=== PATIENT | male | born 1945 | race Caucasian/White ===

== ENCOUNTER 2018-03-24 10:09 | Inpatient (IN) ==
[2018-03-24] MEDS ORDERED: Bisacodyl 10 MG Supp RECTAL PRN (14:11)
[2018-03-24] MEDS: Azithromycin 250 MG Tablet PO SCH (17:30)
[2018-03-24] MEDS: Enoxaparin Inj 40 MG/0.4 ML Syringe SQ SCH (17:32)
--- NOTE | 2018-03-24 17:44 | P.HP ---
History of Present Illness Chief Complaint: Fever, nausea and vomiting History of Present Illness: 73-year-old male of prostate cancer, history of tobacco use who presented to the hospital for evaluation of fever and nausea and vomiting. Patient states that he has been having medical symptoms for over a month. Approximate 1 month ago he was admitted in [facility] in [place] for approximately 7 days for infection. He was discharged home after 3 days he did not feel any better so he went back to the emergency department and he was given antibiotic and took it until completion. Then 2 weeks ago he started noticing that he is experiencing intermittent fevers that run from high 98-102 intermittently. One week ago he did go to [facility] and was treated for urinary tract infection with oral Keflex. He has been taking medication up until now. Patient had a family member come in from [place] to visit and he states that he had a fever this morning with an episode of gastric reflux and vomiting because of those reasons she brought him to the hospital for evaluation since he has been to [facility] multiple times without any improvement. They decided come to [place] for different evaluation. Patient did have workup done emergency department and found to have a mildly elevated lactic acid level. Chest x-ray with possible early airspace disease, CT scan does show chronic interstitial changes in the lung bases bilaterally. - Diagnosis (1) HAP (hospital-acquired pneumonia) Inpatient Certification: I certify that the inpatient services were ordered in accordance with Medicare regulations governing the order. This includes certification that hospital inpatient services are reasonable and necessary and in the case of services not specified as inpatient-only under 42 CFR 419.22(n), that they are appropriately provided as inpatient services in accordance to with the 2-midnight benchmark under 43 CFR 412.3(e) Estimated Total Length of Stay (Days): 3 Plans for Post Hospital Care: Home Review of Systems All other systems reviewed negative except as stated in HPI Constitutional: Reports fever(s) Respiratory: Reports cough Gastrointestinal: Reports abdominal pain, Reports nausea, Reports vomiting PMFSH - History History Provided By: Patient, Family Member - Medical History Medical History: Medical History (Last Reviewed 03/24/18 @ 17:38 by XAVIRE Queen) Anxiety BPH (benign prostatic hyperplasia) COPD (chronic obstructive pulmonary disease) High cholesterol History of chemotherapy Hx of radiation therapy Hypertension Prostate CA - Surgical History Surgical History: Surgical History (Last Reviewed 03/24/18 @ 17:38 by XAVIER Queen) Hx of appendectomy Hx of cholecystectomy Hx of hemorrhoidectomy Hx of neck surgery - Family History Family History: Family History (Last Updated 03/24/18 @ 17:38 by XAVIER Queen) Mother Family history of colon cancer Father Family history of stroke - Tobacco History Smoking Status: Former smoker Number of Pack Years (if former smoker): 50 - Alcohol History How Often Do You Have a Drink Containing Alcohol: Monthly or less - Substance Use History Substance History: No History of Abuse Medications and Allergies Active Medications: Active Medications Al Hydroxide/Mg Hydroxide (Milk Of Magnesia Liq) 30 ml PO Q12H PRN PRN Reason: Mild Constipation Azithromycin (Zithromax) 500 mg PO DAILY SHOBHA Bisacodyl (Dulcolax Supp) 10 mg RECTAL DAILY PRN PRN Reason: SEVERE CONSITIPATION Enoxaparin Sodium (Lovenox Inj) 40 mg SQ Q24H SHOBHA Piperacillin/Tazobactam/Dextrose (Zosyn 3.375 Gm Premix) 50 mls @ 100 mls/hr IV.SIG Q6H SHOBHA Lactulose (Lactulose Liq) 30 ml PO DAILY PRN PRN Reason: SEVERE CONSITIPATION Ondansetron HCl (Zofran Inj) 4 mg IV.PUSH Q6H PRN PRN Reason: NAUSEA OR VOMITING Senna/Docusate Sodium (Tiffany-Colace) 1 tab PO BID SHOBHA Sennosides (Senokot) 17.2 mg PO Q12H PRN PRN Reason: Moderate Constipation Sodium Chloride (Ns Flush) 2 ml IV.FLUSH PRN PRN PRN Reason: FLUSH AFTER USING IV ACCESS Allergies Allergy/AdvReac Type Severity Reaction Status Date / Time No Known Allergies Allergy Verified 03/24/18 10:39 Home Medications Medication Instructions Recorded Confirmed Type acetaminophen 1,000 mg PO Q6H PRN 03/24/18 03/24/18 History albuterol sulfate [ProAir HFA] 2 puff INHALATION Q4-6H PRN 03/24/18 03/24/18 History atorvastatin 10 mg PO DAILY 03/24/18 03/24/18 History budesonide-formoterol [Symbicort] 2 puff INHALATION BID 03/24/18 03/24/18 History cephalexin [Keflex] 500 mg PO BID 03/24/18 03/24/18 History cyanocobalamin (vitamin B-12) 1,000 mcg PO DAILY 03/24/18 03/24/18 History [Vitamin B-12] fluoxetine 10 mg PO DAILY 03/24/18 03/24/18 History gabapentin 400 mg PO BID 03/24/18 03/24/18 History lisinopril 20 mg PO DAILY 03/24/18 03/24/18 History magnesium oxide 400 mg PO DAILY 03/24/18 03/24/18 History omeprazole 40 mg PO DAILY 03/24/18 03/24/18 History ondansetron [Zofran ODT] 4 mg PO Q6-8H PRN 03/24/18 03/24/18 History sertraline 25 mg PO DAILY 03/24/18 03/24/18 History tamsulosin 0.4 mg PO BID 03/24/18 03/24/18 History tramadol 50 mg PO BID 03/24/18 03/24/18 History Exam Narrative: GENERAL: Well-developed, well-nourished, in no acute distress. alert and orientated HEENT: Head is normocephalic without any lesions or masses noted. Facial features are symmetric. Eyes: Pupils equal round reactive to light. Extraocular muscles are intact. Conjunctivae were clear. Oropharyngeal: Pharynx without any erythema edema. Tongue is midline without deviation. Buccal mucosa is moist without any masses or lesions NECK: Supple without any masses. Trachea midline no deviation. No JVD, no bruits are appreciated CARDIAC: Regular rhythm, regular rate. S1/S2 are heard. No murmurs gallops or rubs. LUNGS: Clear to auscultation bilaterally. No wheeze, rhonchi or rales. No use of accessory muscles on inspiration or expiration. ABDOMEN: Soft, nontender. Nondistended. Bowel sounds heard in all 4 quadrants. No organomegaly or masses. Negative rebound, negative guarding EXTREMITIES: No edema, pulses are equal bilaterally. No cyanosis or clubbing NEUROLOGY: Mood and affect appear appropriate. Cranial nerves II through XII grossly intact. Muscle strength 5/5 in upper and lower extremities bilaterally. Deep tendon reflexes are 2+ in upper and lower extremities bilaterally. Caprini VTE Risk Assessment Caprini VTE Risk Assessment: Moderate/High Risk (score >= 2) Caprini Risk Assessment Model: Point Value = 1 Point Value = 2 Point Value = 3 Point Value = 5 Age 41-60 Minor surgery BMI > 25 kg/m2 Swollen legs Varicose veins or History of unexplained or recurrent spontaneous Oral contraceptives or hormone replacement Sepsis (< 1 month) Serious lung disease, including pneumonia (< 1 month) Abnormal pulmonary function Acute myocardial infarction Congestive heart failure (< 1 month) History of inflammatory bowel disease Medical patient at bed rest Age 61-74 Arthroscopic surgery Major open surgery (> 45 min) Laparoscopic surgery (> 45 min) Malignancy Confined to bed (> 72 hours) Immobilizing plaster cast Central venous access Age >= 75 History of VTE Family history of VTE Factor V Leiden Prothrombin [id number] Lupus anticoagulant Anticardiolipin antibodies Elevated serum homocysteine Heparin-induced thrombocytopenia Other congenital or acquired thrombophilia Stroke (< 1 month) Elective arthroplasty Hip, pelvis, or leg fracture Acute spinal cord injury (< 1 month) Prophylaxis Regimen: Total Risk Factor Score Risk Level Prophylaxis Regimen 0-1 Low Early ambulation 2 Moderate Order ONE of the following: *Sequential Compression Device (SCD) *Heparin 5000 units SQ BID 3-4 Higher Order ONE of the following medications: *Heparin 5000 units SQ TID *Enoxaparin/Lovenox 40 mg SQ daily (WT < 150 kg, CrCl > 30 mL/min) *Enoxaparin/Lovenox 30 mg SQ daily (WT < 150 kg, CrCl > 10-29 mL/min) *Enoxaparin/Lovenox 30 mg SQ BID (WT < 150 kg, CrCl > 30 mL/min) AND/OR *Sequential Compression Device (SCD) 5 or more Highest Order ONE of the following medications: *Heparin 5000 units SQ TID (Preferred with Epidurals) *Enoxaparin/Lovenox 40 mg SQ daily (WT < 150 kg, CrCl > 30 mL/min) *Enoxaparin/Lovenox 30 mg SQ daily (WT < 150 kg, CrCl > 10-29 mL/min) *Enoxaparin/Lovenox 30 mg SQ BID (WT < 150 kg, CrCl > 30 mL/min) AND *Sequential Compression Device (SCD) Assessment and Plan - Assessment (1) HAP (hospital-acquired pneumonia) Code(s): J18.9 - Pneumonia, unspecified organism Status: Acute - Plan 73-year-old male who presented to the hospital initially with fever, abdominal discomfort, nausea, vomiting, cough Sepsis -Patient met criteria with tachycardia, tachypnea, lactic acidosis, x-ray with early airspace disease, possible healthcare associated pneumonia, urinary tract infection -Patient started on Zosyn, Zithromax -Urinalysis does show possible urinary tract infection, need to await culture for further recommendations -Obtain influenza testing, Legionella testing, strep pneumonia testing -Continue to follow blood cultures Healthcare associated pneumonia Chronic obstructive pulmonary disease -Continue antibiotics as above -Continue oxygen to maintain O2 sat greater than 92% -Continue Symbicort -DuoNeb every 6 hours while awake and every 2 hours as needed Abdominal pain with nausea and vomiting, resolved -CT scan of the abdomen did not indicate any acute abnormality -Zofran as needed, bowel regimen -Scrotal ultrasound did not indicate any acute abnormality Hypertension, hyperlipidemia -Continue home medications DVT prevention -Subcutaneous Lovenox
[2018-03-24] MEDS: Piperacil/Tazo 3.375 GM Premix 50 ML IV.SIG SCH (20:27)
[2018-03-24] MEDS: Budesonide-Formoterol 160/4.5 MCG 6 GM Inhaler INH SCH (20:27)
[2018-03-24] MEDS: Senna/Docusate Sodium 8.6/50 MG Tablet PO SCH (20:28)
[2018-03-24] MEDS: Acetaminophen 500 MG Tablet PO PRN (23:57)
[2018-03-25] MEDS: Piperacil/Tazo 3.375 GM Premix 50 ML IV.SIG SCH ×4 (01:22→17:44)
[2018-03-25 06:20] LABS: Potassium 3.8 meq/L (3.5-5.1)
[2018-03-25 06:22] LABS: Calcium 8.5 mg/dL (8.5-10.1)
[2018-03-25 06:23] LABS: Carbon Dioxide 21.7 meq/L (21.0-32.0)
[2018-03-25 06:26] LABS: Baso % (Auto) 0.3 % (0.0-2.0); Eos % (Auto) 0.1 % (0.0-4.0); Hematocrit 28.6 % (39.0-51.0); Hemoglobin 10.1 gm/dL (13.0-17.0); Lymph # (Auto) 0.9 th/mm3 (1.0-4.8); Mean Corpuscular HGB Conc 35.2 % (32.0-36.0); Mean Corpuscular Volume 85.5 fL (80.0-100.0); Mean Platelet Volume 8.8 fL (7.0-11.0); Mono # (Auto) 0.2 th/mm3 (0.0-0.9); Neut # (Auto) 4.7 th/mm3 (1.8-7.7); Neut % (Auto) 79.6 % (16.0-70.0); Platelet Count 197 th/mm3 (150-450); Red Blood Count 3.35 mil/mm3 (4.50-5.90); Red Cell Distribution Width 15.1 % (11.6-17.2); White Blood Count 5.8 th/mm3 (4.0-11.0)
--- NOTE | 2018-03-25 08:17 | P.PNIM ---
Subjective Interval history: 73-year-old who is seen and examined today for follow-up on sepsis, healthcare associated pneumonia. Patient is doing much better. Patient denies any new complaints. Patient has remained afebrile throughout the night. Vital signs are stable. Patient is very concerned that since he has had recurrent infections he wants to make sure that everything is stable. He would like me to talk to his family when they arrive. Physical Exam Vital signs: Vital Signs 03/24/18 20:00 03/24/18 20:49 03/25/18 00:00 Temperature 98.4 F 98.1 F Pulse Rate 101 H 98 H 81 Respiratory Rate 20 16 20 Blood Pressure 157/74 H 145/70 H Pulse Oximetry 95 94 L 03/25/18 07:13 Temperature Pulse Rate 73 Respiratory Rate 18 Blood Pressure Pulse Oximetry Intake & Output 03/24/18 03/25/18 03/25/18 18:59 06:59 18:59 Intake Total 670 / 670 Output Total 650 / 650 Balance 20 20 Weight 77.3 kg 77.1 kg Intake: IV 150 / 150 Zosyn 3.375 GM Premix 50 ML @ 150 / 150 100 mls/hr IV.SIG Q6H SHOBHA Rx#: [id number] Oral 520 / 520 Output: Urine 550 / 550 Emesis 100 / 100 Other: Date of Last Bowel Movement 03/24/18 # Emeses 1 Weight On Admission 77.3 kg Narrative: GENERAL: Well-developed, well-nourished, in no acute distress. alert and orientated HEENT: Head is normocephalic without any lesions or masses noted. Facial features are symmetric. Eyes: Extraocular muscles are intact. Conjunctivae were clear. NECK: Supple without any masses. Trachea midline no deviation. No JVD, CARDIAC: Regular rhythm, regular rate. S1/S2 are heard. No murmurs gallops or rubs. LUNGS: Clear to auscultation bilaterally. No wheeze, rhonchi or rales. No use of accessory muscles on inspiration or expiration. ABDOMEN: Soft, nontender. Nondistended. Bowel sounds heard in all 4 quadrants. No organomegaly or masses. Negative rebound, negative guarding EXTREMITIES: No edema, pulses are equal bilaterally. No cyanosis or clubbing NEUROLOGY: Mood and affect appear appropriate. Cranial nerves II through XII grossly intact. Moving all extremities, speech is clear Results - Labs CBC & Chem 7: 03/25/18 05:15 03/25/18 05:15 Laboratory Results - last 24 hr 03/25/18 03/25/18 05:15 05:15 CBC w Diff Auto diff final WBC 5.8 RBC 3.35 L Hgb 10.1 L Hct 28.6 L MCV 85.5 MCH 30.0 MCHC 35.2 RDW 15.1 Plt Count 197 MPV 8.8 Neut % (Auto) 79.6 H Lymph % (Auto) 16.0 Labette % (Auto) 4.0 Eos % (Auto) 0.1 Baso % (Auto) 0.3 Neut # (Auto) 4.7 Lymph # (Auto) 0.9 L Labette # (Auto) 0.2 Eos # (Auto) 0.0 Baso # (Auto) 0.0 WBC Differential . Differential Comment . Sodium 140 Potassium 3.8 Chloride 108 H Carbon Dioxide 21.7 Anion Gap 10 BUN 13 Creatinine 0.95 Estimated GFR 77 L Random Glucose 136 H Calcium 8.5 Microbiology 03/24/18 21:30 Nasal Wash Influenza Types A,B Antigen - Final Negative for FLU A and B antigen Infection due to influenza A or B cannot be ruled out since the antigen present in the sample may be below the detection limit of the test. Assessment and Plan - Assessment (1) HAP (hospital-acquired pneumonia) Code(s): J18.9 - Pneumonia, unspecified organism Status: Inactive - Plan 73-year-old male who presented to the hospital initially with fever, abdominal discomfort, nausea, vomiting, cough Sepsis, resolved -Patient met criteria with tachycardia, tachypnea, lactic acidosis, x-ray with early airspace disease, possible healthcare associated pneumonia, urinary tract infection -Patient continued on Zosyn, Zithromax -Urinalysis does show possible urinary tract infection, need to await culture for further recommendations -Influenza testing was negative -Legionella testing, strep pneumonia testing is pending -Continue to follow blood cultures Healthcare associated pneumonia Chronic obstructive pulmonary disease -Continue antibiotics as above -Continue oxygen to maintain O2 sat greater than 92% -Continue Symbicort -DuoNeb every 6 hours while awake and every 2 hours as needed Abdominal pain with nausea and vomiting, resolved -CT scan of the abdomen did not indicate any acute abnormality -Zofran as needed, bowel regimen -Scrotal ultrasound did not indicate any acute abnormality Hypertension, hyperlipidemia -Continue home medications DVT prevention -Subcutaneous Lovenox Discharge Planning: Discharge planning home if patient continues to remain stable, blood cultures negative for 2 days.
[2018-03-25] MEDS: Senna/Docusate Sodium 8.6/50 MG Tablet PO SCH ×2 (08:22→21:39)
[2018-03-25] MEDS: Lisinopril 20 MG Tablet PO SCH (08:22)
[2018-03-25] MEDS: Azithromycin 250 MG Tablet PO SCH (08:22)
[2018-03-25] MEDS: Budesonide-Formoterol 160/4.5 MCG 6 GM Inhaler INH SCH ×2 (09:55→21:38)
[2018-03-25] MEDS: Enoxaparin Inj 40 MG/0.4 ML Syringe SQ SCH (14:13)
[2018-03-26] MEDS ORDERED: Benzonatate 100 MG Capsule PO PRN (00:06)
[2018-03-26] MEDS: Piperacil/Tazo 3.375 GM Premix 50 ML IV.SIG SCH ×2 (01:36→06:09)
[2018-03-26 02:12] VITALS: TEMP 97.7; O2SAT 93
[2018-03-26 07:26] VITALS: PULSE 89
--- NOTE | 2018-03-26 08:18 | P.DS ---
Date of admission: 03/24/18 17:13 Primary care physician: UNKNOWN Attending physician on discharge: Pranay Shine Anticipated date of discharge: 03/26/18 Brief History from admission: 73-year-old male of prostate cancer, history of tobacco use who presented to the hospital for evaluation of fever and nausea and vomiting. Patient states that he has been having medical symptoms for over a month. Approximate 1 month ago he was admitted in [facility] in [place] for approximately 7 days for infection. He was discharged home after 3 days he did not feel any better so he went back to the emergency department and he was given antibiotic and took it until completion. Then 2 weeks ago he started noticing that he is experiencing intermittent fevers that run from high 98-102 intermittently. One week ago he did go to [facility] and was treated for urinary tract infection with oral Keflex. He has been taking medication up until now. Patient had a family member come in from [place] to visit and he states that he had a fever this morning with an episode of gastric reflux and vomiting because of those reasons she brought him to the hospital for evaluation since he has been to [facility] multiple times without any improvement. They decided come to [place] for different evaluation. Patient did have workup done emergency department and found to have a mildly elevated lactic acid level. Chest x-ray with possible early airspace disease, CT scan does show chronic interstitial changes in the lung bases bilaterally. DS: Diagnosis - Discharge Diagnosis (1) HAP (hospital-acquired pneumonia) Status: Inactive (2) Sepsis Status: Acute DS: Medications - Discharge Medications Prescriptions: benzonatate [Tessalon Perles] 100 mg PO Q8H PRN #30 cap PRN Reason: ough levofloxacin [Levaquin] 750 mg PO DAILY #10 tab DS: Summary Hospital Course: 73-year-old male who originally presented to the hospital from [place] [facility] because of recurrent symptoms of cough, congestion, abdominal pain, nausea, vomiting. Patient is been hospitalized multiple times over in [place] at [facility] without any significant improvement. Patient was evaluated in the emergency department at [place] and found to have criteria for sepsis, new lung pneumonia. Considering the patient's recurrent hospitalizations. Patient with sepsis and healthcare associated pneumonia. Patient was admitted on antibiotics to include Zosyn and Zithromax. Patient did well during his hospitalization. Did not have any recurrent fever, nausea, vomiting, abdominal pain. Discussed with the patient and family on multiple occasions. Patient remained stable during the hospitalization and tolerated treatment well. Patient clinically stable for discharge at this time. Patient instructed follow -up with a prior medical doctor in 1 week. - Time Spent with Patient Total time spent providing and/or coordinating discharge services: Greater than 30 minutes - Quality: VTE Deep Vein Thrombosis/Pulmonary Embolism Present on Admission: No Exam Vital signs: Vital Signs 03/25/18 12:00 03/25/18 16:00 03/25/18 20:00 Temperature 97.1 F L 97.2 F L Pulse Rate 97 H 98 H 92 H Respiratory Rate 20 20 21 Blood Pressure 139/79 134/71 135/71 Pulse Oximetry 95 96 91 L 03/25/18 20:02 03/25/18 23:43 03/26/18 00:00 Temperature 97.7 F Pulse Rate 84 88 96 H Respiratory Rate 18 20 20 Blood Pressure 119/68 Pulse Oximetry 93 L 03/26/18 07:25 Temperature Pulse Rate 89 Respiratory Rate 20 Blood Pressure Pulse Oximetry Intake & Output 03/25/18 03/26/18 03/26/18 18:59 06:59 18:59 Intake Total 580 / 580 50 / 50 50 / 50 Output Total 800 / 800 Balance -220 / -220 50 / 50 50 / 50 Weight 77.2 kg Intake: IV 100 / 100 50 / 50 50 / 50 Zosyn 3.375 GM Premix 50 ML @ 100 / 100 50 / 50 50 / 50 100 mls/hr IV.SIG Q6H SHOBHA Rx#: [id number] Oral 480 / 480 Output: Urine 800 / 800 Other: Date of Last Bowel Movement 03/25/18 03/25/18 Narrative: GENERAL: Well-developed, well-nourished, in no acute distress. alert and orientated HEENT: Head is normocephalic without any lesions or masses noted. Facial features are symmetric. Eyes: Extraocular muscles are intact. Conjunctivae were clear. NECK: Supple without any masses. Trachea midline no deviation. No JVD, CARDIAC: Regular rhythm, regular rate. S1/S2 are heard. No murmurs gallops or rubs. LUNGS: Clear to auscultation bilaterally. No wheeze, rhonchi or rales. No use of accessory muscles on inspiration or expiration. ABDOMEN: Soft, nontender. Nondistended. Bowel sounds heard in all 4 quadrants. No organomegaly or masses. Negative rebound, negative guarding EXTREMITIES: No edema, pulses are equal bilaterally. No cyanosis or clubbing NEUROLOGY: Mood and affect appear appropriate. Cranial nerves II through XII grossly intact. Moving all extremities, speech is clear Results Procedures completed during hospitalization: none Discharge Plan - Discharge Disposition Patient Disposition: 01 Discharge Home - Discharge Condition Condition: Stable - Discharge Order Discharge Orders: Discharge Order (Routine); Ordered 03/26/18 Ordered By: Wei Dorsey - Discharge Details Anticipated Discharge Date: 03/26/18 - Physicians Team Primary Care Provider: UNKNOWN, Attending Provider: Pranay Shine Other Providers: Cathi Winkler - Rxs /Orders / Referrals /Forms Prescriptions: New benzonatate [Tessalon Perles] 100 mg Capsule 100 mg PO Q8H PRN (Reason: ough) Qty: 30 RF: 0 levofloxacin [Levaquin] 750 mg Tablet 750 mg PO DAILY Qty: 10 RF: 0 Continue acetaminophen 500 mg Tablet 1,000 mg PO Q6H PRN (Reason: Fever) albuterol sulfate [ProAir HFA] 90 mcg/actuation Hfa Aerosol Inhaler 2 puff INHALATION Q4-6H PRN (Reason: Shortness Of Breath) atorvastatin 10 mg Tablet 10 mg PO DAILY budesonide-formoterol [Symbicort] 160-4.5 mcg/actuation Hfa Aerosol Inhaler 2 puff INHALATION BID cyanocobalamin (vitamin B-12) [Vitamin B-12] 1,000 mcg Tablet 1,000 mcg PO DAILY fluoxetine 10 mg Capsule 10 mg PO DAILY gabapentin 400 mg Capsule 400 mg PO BID lisinopril 20 mg Tablet 20 mg PO DAILY magnesium oxide 400 mg Capsule 400 mg PO DAILY omeprazole 40 mg Capsule,Delayed Release(Dr/Ec) 40 mg PO DAILY ondansetron [Zofran ODT] 4 mg Tablet,Disintegrating 4 mg PO Q6-8H PRN (Reason: Nausea) sertraline 25 mg Tablet 25 mg PO DAILY tamsulosin 0.4 mg Capsule 0.4 mg PO BID tramadol 50 mg Tablet 50 mg PO BID Discontinued cephalexin [Keflex] 500 mg Capsule 500 mg PO BID Referrals: UNKNOWN, [Primary Care Provider] - See Instructions - Post Discharge Care Plan Care Plan Goals: Your Health Problems: Goals to Promote Your Health: * To prevent worsening of your condition * To maintain your health at the optimal level Directions to Meet Your Goals: * Take your medications as prescribed * Follow your dietary instruction * Follow activity as directed * Keep your appointments as scheduled * Take your immunizations and boosters as scheduled * If your symptoms worsen call your PCP * If no PCP go to Urgent Care or Emergency Room Smoking is dangerous to your health. Avoid second hand smoke. You may reach the 24-hour crisis hotline for domestic abuse at .
[2018-03-26] MEDS: Azithromycin 250 MG Tablet PO SCH (08:39)
[2018-03-26] MEDS: Senna/Docusate Sodium 8.6/50 MG Tablet PO SCH (08:40)
[2018-03-26] MEDS: Budesonide-Formoterol 160/4.5 MCG 6 GM Inhaler INH SCH (08:41)
[2018-03-26] MEDS: Lisinopril 20 MG Tablet PO SCH (08:41)
[2018-03-26 08:43] VITALS: BP 160/85; RESP 18
[2018-03-26] MEDS: Acetaminophen 500 MG Tablet PO PRN (08:46)
== END 2018-03-26 11:26 | disposition home or self-care (01) ==
LOC: PHEDDLT 10:09 → PHEDA 17:13
PROVIDERS: ADMIT Hospitalist; ATTEND Hospitalist